=== PATIENT | male | born 1995 | race Caucasian/White ===

== ENCOUNTER 2019-06-30 14:32 | Emergency (ER) | payer SELFPAY ==
[~2019-06-30] VITALS: Ht 190.5 cm; Wt 104.3 kg
== END 2019-06-30 17:02 | disposition home or self-care (01) ==
LOC: ED 14:32
DX: S00.83XA Contusion of other part of head, initial encounter (principal); S00.512A Abrasion of oral cavity, initial encounter; Y04.2XXA Assault by strike against or bumped into by another person, initial encounter; Y93.89 Activity, other specified; Y92.89 Other specified places as the place of occurrence of the external cause; Y99.8 Other external cause status